=== PATIENT | female | born 1975 | race Caucasian/White ===

== ENCOUNTER 2020-09-08 21:03 | Emergency (ER) | payer SELFPAY ==
[~2020-09-08] VITALS: Ht 162.6 cm; Wt 77.1 kg
[2020-09-08 21:08] VITALS: BP 131/89
[2020-09-08] MEDS ORDERED: ONDANSETRON 4 MG ODT PO ONE (22:35)
[2020-09-08] MEDS ORDERED: ONDA-24 SL (22:37)
[2020-09-08 23:31] LABS: APPEARANCE,URINE CLEAR (CLEAR); BILIRUBIN,URINE 1+ (NEGATIVE); BLOOD, URINE 2+ (NEGATIVE); COLOR,URINE DARK YELLOW (YELLOW); LEUKOCYTE ESTERASE ,URINE NEGATIVE (NEGATIVE); NITRITE, URINE NEGATIVE (NEGATIVE); UGLUCOSE NEGATIVE (NEGATIVE)
[2020-09-08 23:52] LABS: RBC,URINE 11-20 (MOD) /HPF (0-5); WBC,URINE 0-5 /HPF (0-5)
[2020-09-09 00:11] VITALS: BP 130/82
== END 2020-09-09 00:08 | disposition home or self-care (01) ==
LOC: MED 21:03
DX: R11.2 Nausea with vomiting, unspecified (principal); R19.7 Diarrhea, unspecified; Z20.822 Contact with and (suspected) exposure to COVID-19
CPT/HCPCS: 71045; 81001; 81025; 87426; 99284; Q0162